=== PATIENT | female | born 1950 | race Two or more races ===

== ENCOUNTER 2016-07-08 00:19 | Emergency (ER) | payer OTHER ==
[~2016-07-08] VITALS: Ht 152.4 cm; Wt 68.0 kg
[~2016-07-08 00:19] MED LIST: ASPI325T2 PO; ATOR40TA PO; METO25TA6 PO
[2016-07-08 00:20] VITALS: BP 141/90
[2016-07-08] MEDS ORDERED: ACETAMINOPHEN 325 MG TABLET ONE (00:39)
[2016-07-08] MEDS ORDERED: ACETAMINOPHEN 325 MG TABLET PO ONE (01:00)
== END 2016-07-08 00:57 | disposition home or self-care (01) ==
LOC: ER 00:22
DX: R51 Headache (principal); D64.9 Anemia, unspecified; I10 Essential (primary) hypertension; Z79.82 Long term (current) use of aspirin; E03.9 Hypothyroidism, unspecified
CPT/HCPCS: 99282; A4606; Z7610

== ENCOUNTER 2022-01-11 00:26 | Emergency (ER) | payer MEDICARE, MEDICAID ==
[~2022-01-11] VITALS: Ht 149.9 cm; Wt 77.1 kg
[~2022-01-11 00:26] MED LIST changes: +ASPI-992 PO; -ASPI325T2 PO
[2022-01-11 01:09] VITALS: BP 111/73
[2022-01-11] MEDS ORDERED: IBUPROFEN 400 MG TABLET ONE (01:15)
--- NOTE | 2022-01-11 01:20 | NUR ---
BIBSELF C/O RIGHT HIP/LEG/ANKLE PAIN S/P TRIP AND FALL. -KO. PT AWAKE AND ALERT X4 BREATHING EVEN AND UNLABORED. NO GROSS DEFORMITIES OR TRAUMA NOTED. ALL V/S WNL. DAUGHTER AT BEDSIDE.
--- NOTE | 2022-01-11 01:22 | NUR ---
XRAY AT BEDSIDE
[2022-01-11] MEDS ORDERED: IBUPROFEN 400 MG TABLET PO ONE (01:30)
--- NOTE | 2022-01-11 03:19 | NUR ---
STAT RAD PAGED
--- NOTE | 2022-01-11 04:38 | NUR ---
Patient does not wish to proceed with medical care recommended by Leonie Benitez. Patient given information related to possible complications, up to and including , which could occur as a result of leaving the hospital at this time. Patient verbalizes understanding of risks involved due to leaving against medical advice. Patient has signed AMA form.
== END 2022-01-11 04:39 | disposition left against medical advice (07) ==
LOC: ER 00:41
DX: M25.551 Pain in right hip (principal); M25.561 Pain in right knee; M25.571 Pain in right ankle and joints of right foot; I10 Essential (primary) hypertension; E03.9 Hypothyroidism, unspecified; Z79.899 Other long term (current) drug therapy
CPT/HCPCS: 73502; 73564-TC; 73610-TC; 73630-TC